=== PATIENT | female | born 1990 | race African-American/Black ===

== ENCOUNTER 2024-06-10 09:37 | Emergency (ER) | payer OTHER, SELFPAY ==
[2024-06-10] VITALS (8 sets, daily range): BP systolic 109–160; BP diastolic 68–116
[2024-06-10 10:08] LABS: % Basophils 0.7 % (0-2); % Eosinophils 2.4 % (0-6); % Immature Granulocytes 0.2 % (0-0.5); % Lymphocytes 35.3 % (20.5-51.1); % Monocytes 9.9 % (1.7-9.3); % Neutrophils 51.5 % (42.2-75.2); Absolute Eosinophils 0.1 10^3/uL (0-0.7); Absolute Lymphocytes 1.6 10^3/uL (1.2-3.4); Absolute Monocytes 0.5 10^3/uL (0.1-0.6); Absolute Neutrophils 2.3 10^3/uL (1.4-6.5); Hemoglobin 14.4 g/dL (12.0-16.0); Mean Corp Hgb Conc. 34.3 g/dL (33.0-37.0); Mean Corpuscular Hgb 29.5 pg (27.0-31.0); Mean Corpuscular Volume 86.1 fL (81.0-99.0); Mean Platelet Volume 10.2 fL (7.4-10.4); Nucleated Red Blood Cells % 0 %; Platelet Count 254 10^3/uL (130-400); Red Blood Cell Count 4.88 10^6/uL (4.20-5.40); Red Cell Dist. Width 13.7 % (11.5-14.5); White Blood Cell Count 4.5 10^3/uL (4.8-10.8)
[2024-06-10 10:16] LABS: ALT (SGPT) 12 U/L (0-35); AST (SGOT) 32 U/L (14-36); Acetaminophen < 10 ug/ml (10-30); Albumin 4.2 g/dl (3.5-5.0); Alkaline Phosphatase 71 U/L (38-126); Blood Urea Nitrogen 6 mg/dl (7-17); Calcium 9.8 mg/dl (8.4-10.2); Carbon Dioxide 24 mmol/L (22-30); Chloride 107 mmol/L (98-107); Glucose 89 mg/dl (70-99); Potassium 4.2 mmol/L (3.5-5.1); Salicylate < 1.0 mg/dl (2.0-20.0); Sodium 138 mmol/L (135-145); Total Bilirubin 0.8 mg/dl (0.2-1.3); Total Protein 6.8 g/dl (6.3-8.2); eGFR > 60.00
[2024-06-10 10:18] LABS: Alcohol None Detected
[2024-06-10 14:04] LABS: HCG, Serum Qualitative Screen Negative
[2024-06-10 14:07] LABS: Creatine Phosphokinase 169 U/L (30-135)
--- NOTE | 2024-06-10 15:16 | ED.GENMED ---
History of Present Illness
General
Chief Complaint: Overdose Unintentional
Source: records and police
Exam Limitations: clinical condition
Time Seen by Provider: 06/10/24 09:39
Nursing documentation reviewed up to this point in time: agreed with
History of Present Illness
History of Present Illness:
Patient is a 34-year-old female who was incarcerated starting yesterday and said that she had done multiple doses and bags of fentanyl, heroin and cocaine. Today patient was difficult to arouse and had a change in mental status. Patient reportedly
did not suffer an injury. Patient has not been febrile. The clinic was concerned that she had overdosed while there is a found or hard to arouse.
Past History
Past History
ED Past Medical History: Other (Patient is not particularly forthcoming)
Social History
Drug: Marijuana, Cocaine and Narcotics
Living: snf
Review of Systems
Review of Systems
Unable to obtain full review of systems at this time due to: other (Not engaging and answering questions.)
All Other Systems: Not applicable
Phy Exam
Physical Exam
Physical Exam:
Physical Exam
General: No apparent distress, alert to verbal stimuli, well nourished, well hydrated
HENT: Normocephalic and nontender as well as atraumatic, supple with no lymphadenopathy, no thyromegaly
Heart: Regular rhythm and rate. No S3, S4. No murmur. No NVD, bruit
Lungs: No respiratory distress, no stridor, lung sounds clear and equal bilaterally, chest wall symmetrical and nontender
Abdomen: Soft, nontender, no organomegaly, BS good
Neuro: Alert to verbal stimuli, CN II - XII grossly intact, no motor focality
Skin: no rash
Psychiatric: Patient not particularly well kept and initially not cooperative but after workup was able to eat and go to the bathroom independently.
Extremities: No edema, cyanosis, tenderness
Course
Orders/Labs/Results
Orders:
Orders
06/10/24 09:48
Electrocardiogram (*1) Urgent
Reason for Study: Other
Other Reason for Exam: Potential overdose
Bedside Glucose- Treatment ONCE
Cardiac Monitoring- Treatment ONCE
EKG- Treatment ONCE
IV Insert/Care/Rem.- Treatment PRN
Pulse Ox/spot Check [RESP] Urgent
Quantity: 1
06/10/24 09:52
Acetaminophen Urgent
Alcohol Urgent
Complete Blood Count/With Diff Urgent
Comprehensive Metabolic Panel Urgent
Creatine Phosphokinase Urgent
Comment: ADD ON
HCG, Serum Qualitative Screen Urgent
Comment: ADD ON
Salicylate Urgent
06/10/24 09:59
Add On- LAB Urgent
Tests Added?: hcg
06/10/24 11:34
Add On- LAB Urgent
Tests Added?: qualitative hcg serum, CPK
CT Head W/o Iv Contrast Urgent
Comment:
Reason For Exam: change in mental stateus
Abnormal Lab Results
06/10/24
09:52
WBC 4.5 L 10^3/uL
(4.8-10.8)
Monocytes % 9.9 H %
(1.7-9.3)
BUN 6 L mg/dl
(7-17)
Creatine Kinase 169 H U/L
(30-135)
Salicylates < 1.0 L mg/dl
(2.0-20.0)
Acetaminophen < 10 L ug/ml
(10-30)
06/10/24 09:52
06/10/24 09:52
Vital Signs
Initial and Last Documented VS:
Initial Vital Signs
BP
139/91
06/10/24 09:40
Last Documented Vital Signs
Temp Pulse Resp BP Pulse Ox
98.9 F 64 17 109/68 98
06/10/24 09:44 06/10/24 14:00 06/10/24 14:00 06/10/24 14:00 06/10/24 14:00
*Radiology
Radiology exam reviewed: radiology read reviewed (Unremarkable)
*Pulse Oximetry
Patient hypoxic: no
*EKG
Interpreted by ED Provider?: Yes
EKG Intrepretation Date: 06/10/24
EKG Intrepretation Time: 15:38
Interpretation: normal
Comparison EKG: no comparison EKG present
Heart Rate: 52
Rate: bradycardiac
Rhythm: sinus
[place]: normal axis
Interval: normal interval
QRS Pattern: normal QRS
Ischemia: no ischemia
*Student Driving Instructor Interpretation
Rate: bradycardiac
Interpretation: normal
Heart Rate: 52
Rhythm: sinus
*Critical Care Note
Total Time (30-74mins, 75-104mins- exclusive of procedures): Not Applicable
Update Note
Update Note:
Patient improved. Patient will be discharged.
ED Attending Note
-
Portions of this chart may have been created with voice recognition software.� Occasional wrong word or��sound alike� substitutions may have occurred due to the inherent limitations of voice recognition software.
Discharge Plan
Departure
Patient Disposition: [facility]
Date of Disposition: 06/10/24
Time of Disposition: 15:39
Patient with high blood pressure during this ER visit?: No
Condition: Good
Covid-19: Not Applicable
Discharge Problem:
Transient altered mental status, Overdose
Instructions: How to Give Naloxone
Referrals:
[facility] [Family Provider] -
Activity Restrictions/Additional Instructions:
Continue any present medications and therapy.
Interventions
Interventions:
*Risk Screen - Suicide Last Done: 06/10/24 09:57
*General Assessment Last Done: 06/10/24 09:57
*Neglect/Abuse Screening Last Done: 06/10/24 09:57
ED- Fall Risk Assessment Last Done: 06/10/24 09:59
ED- Cardiac Assessment Last Done: 06/10/24 09:59
ED- Neurological Assessment Last Done: 06/10/24 09:59
ED-Psychological Assessment Last Done: 06/10/24 09:59
ED- Pulmonary Assessment Last Done: 06/10/24 09:59
Discharge Date and Time
Print Language: SWEDISH
== END 2024-06-10 16:18 ==
LOC: EMR 09:37
PROVIDERS: EMERGENCY PHYSICIAN Emergency Medicine
DX: T40.1X1A Poisoning by heroin, accidental (unintentional), initial encounter (principal); T40.5X1A Poisoning by cocaine, accidental (unintentional), initial encounter; T40.411A Poisoning by fentanyl or fentanyl analogs, accidental (unintentional), initial encounter; R41.82 Altered mental status, unspecified
CPT/HCPCS: 99285; 70450; 80053; 80143; 80179; 82077; 82550; 84703; 85025; 93005

== ENCOUNTER 2024-06-11 11:02 | Emergency (ER) | payer OTHER, SELFPAY ==
[2024-06-11 11:12] VITALS: BP 174/97
[2024-06-11] MEDS: NSS 1000 IV (11:53)
[2024-06-11] MEDS: ZOFRAN 4 MG IV (11:54)
[2024-06-11] MEDS: SUBUTEX 12 MG SL (11:59)
--- NOTE | 2024-06-11 12:04 | ED.GENMED ---
History of Present Illness
General
Chief Complaint: Withdrawal Symptoms
Source: patient, records and other (Present records)
Exam Limitations: clinical condition
Time Seen by Provider: 06/11/24 11:09
Nursing documentation reviewed up to this point in time: agreed with
History of Present Illness
History of Present Illness:
Patient is a 34-year-old female from a local correction and was seen here yesterday for lethargy and decreased mental status however returns today for nausea with vomiting and generalized aches and pains. Patient uses 12 bags of heroin a day and has
not had any in the past 48 hours after being arrested 2 days ago. Patient denies diarrhea. Patient denies shortness of breath or abdominal pain.
Past History
Past History
ED Past Medical History: Other (Patient is not particularly forthcoming)
Social History
Drug: Marijuana, Cocaine and Narcotics
Living: correction
Review of Systems
Review of Systems
All Other Systems: ROS reviewed and negative except as documented in HPI and ROS
Constitutional: Reports fatigue and chills
EENT: Reports no symptoms
Respiratory: Reports no symptoms
Cardiac: Reports no symptoms
ABD/GI: Reports nausea, vomiting and anorexia; Denies diarrhea
: Reports no symptoms
Musculoskeletal: Reports joint pain and muscle pain
Skin: Reports no symptoms
Hematologic/Lymphatic: Reports no symptoms
Phy Exam
Physical Exam
Physical Exam:
Physical Exam
General: No apparent moderate distress, alert and answers questions appropriately, well nourished, dry mucous membranes
HENT: Normocephalic, supple with no lymphadenopathy, no thyromegaly
Heart: Regular rhythm and rate. No S3, S4. No murmur.
Lungs: No respiratory distress, no stridor, lung sounds clear and equal bilaterally
Abdomen: Soft, nontender, no organomegaly, no CVA tenderness, BS good
Neuro: Alert, CN II - XII intact, no motor focality
Skin: no rash
Psychiatric: well kept. interactive and cooperative
Extremities: No edema, cyanosis, tenderness
Course
Orders/Labs/Results
Orders:
Orders
06/11/24 11:40
0.9% Sodium Chloride 1000 ml [Nss] 1,000 ml IV BOLUS
Buprenorphine [Subutex] 12 mg SL NOW ONE
Ondansetron Injectable [Zofran] 4 mg IV NOW STA
06/11/24 12:01
CPK [Creatine Phosphokinase] Urgent
Complete Blood Count/With Diff Urgent
Comprehensive Metabolic Panel Urgent
Abnormal Lab Results
06/11/24
12:01
Absolute Lymphs (auto) 1.0 L 10^3/uL
(1.2-3.4)
Neutrophils % 79.8 H %
(42.2-75.2)
Lymphocytes % 16.4 L %
(20.5-51.1)
Sodium 133 L mmol/L
(135-145)
Potassium 3.4 L mmol/L
(3.5-5.1)
Chloride 96 L mmol/L
(98-107)
BUN 4 L mg/dl
(7-17)
Glucose 127 H mg/dl
(70-99)
Calcium 10.3 H mg/dl
(8.4-10.2)
Total Bilirubin 1.4 H mg/dl
(0.2-1.3)
Creatine Kinase 148 H U/L
(30-135)
Albumin 5.1 H g/dl
(3.5-5.0)
06/11/24 12:01
06/11/24 12:01
Vital Signs
Initial and Last Documented VS:
Initial Vital Signs
Temp Pulse Resp BP Pulse Ox
97.8 F 46 14 174/97 100
06/11/24 11:12 06/11/24 11:12 06/11/24 11:12 06/11/24 11:12 06/11/24 11:12
Last Documented Vital Signs
Temp Pulse Resp BP Pulse Ox
97.8 F 46 14 174/97 100
06/11/24 11:12 06/11/24 11:12 06/11/24 11:12 06/11/24 11:12 06/11/24 11:12
*Radiology
Radiology exam reviewed: other (na)
*Pulse Oximetry
Patient hypoxic: no
*EKG
Interpreted by ED Provider?: NA
*Critical Care Note
Total Time (30-74mins, 75-104mins- exclusive of procedures): Not Applicable
Update Note
Update Note:
Patient no longer vomiting and feeling somewhat better. Patient is on clonidine and Zofran at the present but will put on Subutex
ED Attending Note
-
Portions of this chart may have been created with voice recognition software.� Occasional wrong word or��sound alike� substitutions may have occurred due to the inherent limitations of voice recognition software.
Discharge Plan
Departure
Patient Disposition: Long-Term
Date of Disposition: 06/11/24
Time of Disposition: 14:29
Patient with high blood pressure during this ER visit?: Yes
Condition: Fair
Covid-19: Not Applicable
Discharge Problem:
Opiate withdrawal
Instructions: Nausea and Vomiting, Adult (DC), Polysubstance Use Disorder (DC), BLOOD PRESSURE
Prescriptions:
New
buprenorphine-naloxone [Suboxone] 4-1 mg film
1 film buccal Q2H PRN (Reason: withdrawal) Qty: 30 0RF
Referrals:
[facility] [Family Provider] -
Activity Restrictions/Additional Instructions:
Continue present medications especially the Zofran and clonidine
Interventions
Interventions:
*Risk Screen - Suicide Last Done: 06/11/24 11:05
*General Assessment Last Done: 06/11/24 11:05
*Neglect/Abuse Screening Last Done: 06/11/24 11:05
ED- Neurological Assessment Last Done: 06/11/24 11:57
Discharge Date and Time
Print Language: NIGERIEN
[2024-06-11 12:12] LABS: % Basophils 0.2 % (0-2); % Immature Granulocytes 0.3 % (0-0.5); % Lymphocytes 16.4 % (20.5-51.1); % Monocytes 3.3 % (1.7-9.3); % Neutrophils 79.8 % (42.2-75.2); Absolute Monocytes 0.2 10^3/uL (0.1-0.6); Absolute Neutrophils 4.9 10^3/uL (1.4-6.5); Hemoglobin 15.7 g/dL (12.0-16.0); Mean Corp Hgb Conc. 35.7 g/dL (33.0-37.0); Mean Corpuscular Hgb 29.8 pg (27.0-31.0); Mean Corpuscular Volume 83.7 fL (81.0-99.0); Mean Platelet Volume 10.1 fL (7.4-10.4); Nucleated Red Blood Cells % 0 %; Platelet Count 328 10^3/uL (130-400); Red Blood Cell Count 5.26 10^6/uL (4.20-5.40); Red Cell Dist. Width 13.4 % (11.5-14.5); White Blood Cell Count 6.1 10^3/uL (4.8-10.8)
[2024-06-11 12:31] LABS: ALT (SGPT) 15 U/L (0-35); AST (SGOT) 26 U/L (14-36); Albumin 5.1 g/dl (3.5-5.0); Alkaline Phosphatase 75 U/L (38-126); Blood Urea Nitrogen 4 mg/dl (7-17); Calcium 10.3 mg/dl (8.4-10.2); Carbon Dioxide 24 mmol/L (22-30); Chloride 96 mmol/L (98-107); Creatine Phosphokinase 148 U/L (30-135); Glucose 127 mg/dl (70-99); Potassium 3.4 mmol/L (3.5-5.1); Sodium 133 mmol/L (135-145); Total Bilirubin 1.4 mg/dl (0.2-1.3); eGFR > 60.00
[2024-06-11 14:00] VITALS: BP 173/94
== END 2024-06-11 15:01 ==
LOC: EMR 11:02
PROVIDERS: EMERGENCY PHYSICIAN Emergency Medicine
DX: F11.23 Opioid dependence with withdrawal (principal); R03.0 Elevated blood-pressure reading, without diagnosis of hypertension
CPT/HCPCS: 99284; 96374; 96361; 80053; 82550; 85025